=== PATIENT | female | born 1985 | race Caucasian/White ===

== ENCOUNTER 2022-03-15 22:56 | Emergency (ER) | payer OTHER ==
[~2022-03-15] VITALS: Ht 172.7 cm; Wt 75.0 kg
[2022-03-15 23:00] VITALS: TEMP 98.1
[2022-03-16] MEDS ORDERED: FLEXERIL 1010 MG/TAB PO (01:20)
[2022-03-16] MEDS ORDERED: PREDNISONE20 MG PO (01:20)
[2022-03-16 01:56] VITALS: BP 165/100; PULSE 84
== END 2022-03-16 01:56 | disposition home or self-care (01) ==
LOC: COL.ER 22:56
DX: M54.6 Pain in thoracic spine (principal); Z28.310 Unvaccinated for COVID-19